=== PATIENT | male | born 1980 | race Caucasian/White ===

== ENCOUNTER 2016-07-03 19:30 | Emergency (ER) | payer SELFPAY ==
[~2016-07-03] VITALS: Wt 68.0 kg
[~2016-07-03 19:30] MED LIST: BACLOFEN20 M1 PO; CIPRO500 MG PO; CYCLOBENZAPRINE10 MG PO; GABAPENTIN TAB600 MG PO; HYDROCODONE BIT1 T11 PO; LISINOPRIL AND1 TAB PO; NAPROSYN500 MG PO; OMNICEF300 MG PO; PROVENTIL0.09 MG/A1 INH; TESSALON PERLE100 M1 PO; ULTRAM50 MG PO; ZITHROMAX250 MG PO; ZOFRAN4 MG PO
[2016-07-03 20:24] LABS: BILIRUBIN NEGATIVE (NEGATIVE); BLOOD 3+ (NEGATIVE); CLARITY SL CLOUDY (CLEAR); COLOR YELLOW (YELLOW); GLUCOSE NEGATIVE (NEGATIVE); KETONE NEGATIVE (NEGATIVE); LEUKO ESTERASE NEGATIVE (NEGATIVE); NITRITE NEGATIVE (NEGATIVE); PROTEIN NEGATIVE (NEGATIVE); SPECIFIC GRAVITY <= 1.005 (1.005-1.030); UROBILINOGEN 0.2 E.U./dl (0.2-1.0)
[2016-07-03 20:35] LABS: BACTERIA TRACE; RBC TNTC rbc/hpf (0-2)
[2016-07-03 20:38] LABS: URINE REFLEX COMMENT YES (NO)
[2016-07-03] MEDS ORDERED: CIPRO500 MG PO (22:48)
[2016-07-03] MEDS ORDERED: Motrin,Rufen800 MG PO (22:48)
[2016-07-04] MEDS ORDERED: FLOMAX0.4 MG PO (01:41)
[2016-07-04] MEDS ORDERED: HYDROCODONE BIT1 T11 PO (01:41)
[2016-07-04] MEDS ORDERED: Motrin,Rufen800 MG PO (01:41)
== END 2016-07-04 01:58 | disposition home or self-care (01) ==
LOC: ED 19:30
PROVIDERS: Physician Assistant
DX: N20.1 Calculus of ureter (principal); R31.9 Hematuria, unspecified; F17.200 Nicotine dependence, unspecified, uncomplicated; Z79.899 Other long term (current) drug therapy; Z87.442 Personal history of urinary calculi

== ENCOUNTER → 2016-07-08 | Outpatient (CLI) | payer SELFPAY ==
[~2016-07-08] MED LIST changes: +FLOMAX0.4 MG PO; +Motrin,Rufen800 MG PO
== END | disposition home or self-care (01) ==
LOC: RESCLI 03:55
DX: Z09 Encounter for follow-up examination after completed treatment for conditions other than malignant neoplasm (principal); N20.0 Calculus of kidney; I10 Essential (primary) hypertension; R31.9 Hematuria, unspecified

== ENCOUNTER → 2016-07-10 | Outpatient (CLI) | payer SELFPAY | END | disposition home or self-care (01) | LOC: CT 02:08 | DX: N20.0 Calculus of kidney (principal); R10.9 Unspecified abdominal pain ==

== ENCOUNTER → 2016-09-16 | Outpatient (CLI) | payer SELFPAY | END | disposition home or self-care (01) | LOC: RESCLI 02:01 | DX: I10 Essential (primary) hypertension (principal); G89.29 Other chronic pain ==

== ENCOUNTER → 2016-10-20 | Outpatient (CLI) | payer SELFPAY | END | disposition home or self-care (01) | LOC: RESCLI 13:10 | DX: H10.31 Unspecified acute conjunctivitis, right eye (principal); I10 Essential (primary) hypertension; M77.01 Medial epicondylitis, right elbow ==

== ENCOUNTER 2016-11-02 15:59 | Emergency (ER) | payer SELFPAY ==
[2016-11-02] MEDS ORDERED: NAPROSYN500 MG PO (16:15)
[2016-11-02] MEDS ORDERED: KEFLEX500 M1 PO (16:15)
[2016-11-02] MEDS ORDERED: BACTRIM DS 8001 TA1 PO (16:15)
[2016-11-02 16:19] LABS: BASO % 0.5 % (0.0-1.0); EOS # 0.1 10*3/uL (0.0-0.4); EOS % 1.6 % (1.0-4.0); HEMATOCRIT 46.2 % (42.0-52.0); HEMOGLOBIN 15.6 g/dl (14.0-18.0); LYMPH # 2.1 10*3/uL (1.3-4.4); LYMPH % 25.5 % (27.0-41.0); MEAN CELL VOLUME 93.1 fl (80.0-94.0); MEAN CORPUSCULAR HGB 31.5 pg (27.0-31.0); MEAN CORPUSCULAR HGB CONC 33.8 g/dl (33.0-37.0); MEAN PLATELET VOLUME 10.1 fl (9.6-12.3); MONO # 0.7 10*3/uL (0.1-1.0); MONO % 7.9 % (3.0-9.0); NEUT # 5.3 10*3/uL (2.3-7.9); NEUT % 64.3 % (47.0-73.0); PLATELET COUNT AUTOMATED 236 10*3/uL (130-400); RED BLOOD COUNT 4.96 10*6/uL (4.50-5.90); RED CELL DISTRI WIDTH 13.2 % (0-14.5); WHITE BLOOD COUNT 8.2 10*3/uL (4.8-10.8)
[2016-11-02 16:35] LABS: ALBUMIN 3.6 gm/dl (3.1-4.5); ALKALINE PHOSPHATASE 84 U/L (45-117); BILIRUBIN, TOTAL 0.5 mg/dl (0.2-1.0); BUN 8 mg/dl (7-24); CARBON DIOXIDE 23 mmol/L (21-32); CHLORIDE 108 mmol/L (98-107); EST GLOM FILT AFRICAN AMERICAN > 60 ml/min; GLUCOSE 118 mg/dL (65-99); POTASSIUM 3.5 mmol/L (3.5-5.1); SGOT/AST 10 IU/L (3-35); SGPT/ALT 13 U/L (12-78); SODIUM 141 mmol/L (136-145); TOTAL PROTEIN 6.9 gm/dL (6.4-8.2)
== END 2016-11-02 16:46 | disposition home or self-care (01) ==
LOC: ED 15:59
PROVIDERS: Nurse Practitioner Family
DX: L02.411 Cutaneous abscess of right axilla (principal); R03.0 Elevated blood-pressure reading, without diagnosis of hypertension; F17.200 Nicotine dependence, unspecified, uncomplicated

== ENCOUNTER → 2017-01-23 | Outpatient (CLI) | payer SELFPAY ==
[~2017-01-23] MED LIST changes: +BACTRIM DS 8001 TA1 PO; +KEFLEX500 M1 PO
[2017-01-23 10:08] LABS: BASO # 0.1 10*3/uL (0.0-0.1); EOS # 0.1 10*3/uL (0.0-0.4); EOS % 1.7 % (1.0-4.0); HEMOGLOBIN 16.6 g/dl (14.0-18.0); LYMPH # 1.9 10*3/uL (1.3-4.4); LYMPH % 36.2 % (27.0-41.0); MEAN CELL VOLUME 90.7 fl (80.0-94.0); MEAN CORPUSCULAR HGB CONC 35.3 g/dl (33.0-37.0); MEAN PLATELET VOLUME 9.6 fl (9.6-12.3); MONO # 0.4 10*3/uL (0.1-1.0); MONO % 7.1 % (3.0-9.0); NEUT # 2.8 10*3/uL (2.3-7.9); NEUT % 53.8 % (47.0-73.0); PLATELET COUNT AUTOMATED 256 10*3/uL (130-400); RED BLOOD COUNT 5.18 10*6/uL (4.50-5.90); RED CELL DISTRI WIDTH 13.2 % (0-14.5); WHITE BLOOD COUNT 5.2 10*3/uL (4.8-10.8)
[2017-01-23 10:39] LABS: ALBUMIN 4.1 gm/dl (3.1-4.5); ALKALINE PHOSPHATASE 77 U/L (45-117); BUN 10 mg/dl (7-24); CHLORIDE 102 mmol/L (98-107); CHOLESTEROL 157 mg/dL (<200); CREATININE 0.69 mg/dL (0.70-1.30); HDL CHOLESTEROL 47 mg/dl (40-60); LDL CHOLESTEROL 95 mg/dL (9-159); POTASSIUM 4.5 mmol/L (3.5-5.1); SGOT/AST 13 IU/L (3-35); SGPT/ALT 16 U/L (12-78); SODIUM 137 mmol/L (136-145); TOTAL PROTEIN 7.3 gm/dL (6.4-8.2); TRIGLYCERIDES 77 mg/dl (<150); VLDL CHOLESTEROL 15 mg/dL (6-40)
[2017-01-23 10:47] LABS: THYROID STIM HORMONE (HS) 0.461 uIU/ml (0.358-4.75)
== END | disposition home or self-care (01) ==
LOC: LAB 09:29
PROVIDERS: Nurse Practitioner Family
DX: I10 Essential (primary) hypertension (principal); R55 Syncope and collapse; E83.59 Other disorders of calcium metabolism; G47.00 Insomnia, unspecified

== ENCOUNTER 2017-03-08 19:31 | Emergency (ER) | payer SELFPAY ==
[~2017-03-08] VITALS: Ht 170.1 cm; Wt 68.0 kg
== END 2017-03-08 20:04 | disposition home or self-care (01) ==
LOC: ED 19:31
DX: M25.512 Pain in left shoulder (principal); F17.200 Nicotine dependence, unspecified, uncomplicated

== ENCOUNTER → 2017-03-17 | Outpatient (CLI) | payer SELFPAY | END | disposition home or self-care (01) | LOC: RAD 01:04 → RESCLI 01:04 | DX: S49.92XA Unspecified injury of left shoulder and upper arm, initial encounter (principal); I10 Essential (primary) hypertension; Z72.0 Tobacco use; Z71.6 Tobacco abuse counseling; X58.XXXA Exposure to other specified factors, initial encounter; Y93.89 Activity, other specified; Y92.89 Other specified places as the place of occurrence of the external cause; Y99.8 Other external cause status ==

== ENCOUNTER 2018-02-24 22:30 | Emergency (ER) | payer SELFPAY ==
[~2018-02-24] VITALS: Ht 170.1 cm; Wt 68.0 kg
[2018-02-24] MEDS ORDERED: SEPTDS PO (22:49)
[2018-02-24] MEDS ORDERED: CEPHALEXIN500 M1 PO (22:49)
== END 2018-02-24 22:54 | disposition home or self-care (01) ==
LOC: ED 22:30
DX: L02.414 Cutaneous abscess of left upper limb (principal); Z79.899 Other long term (current) drug therapy

== ENCOUNTER 2019-08-24 13:55 | Emergency (ER) | payer SELFPAY ==
[~2019-08-24] VITALS: Ht 170.1 cm; Wt 69.4 kg
[~2019-08-24 13:55] MED LIST changes: +CEPHALEXIN500 M1 PO; +SEPTDS PO
[2019-08-24] MEDS ORDERED: METHOCARBAMOL500 M1 PO (16:40)
[2019-08-24] MEDS ORDERED: Motrin,Rufen800 MG PO (16:40)
[2019-08-24] MEDS ORDERED: MEDROL DOSEPAK4 MG PO (16:40)
== END 2019-08-24 16:50 | disposition home or self-care (01) ==
LOC: ED 13:55
DX: S46.911A Strain of unspecified muscle, fascia and tendon at shoulder and upper arm level, right arm, initial encounter (principal); I10 Essential (primary) hypertension; F17.200 Nicotine dependence, unspecified, uncomplicated; Z79.899 Other long term (current) drug therapy; X58.XXXA Exposure to other specified factors, initial encounter; Y93.89 Activity, other specified; Y92.89 Other specified places as the place of occurrence of the external cause; Y99.8 Other external cause status

== ENCOUNTER → 2021-07-16 | Outpatient (CLI) | payer OTHER ==
[~2021-07-16] MED LIST changes: +MEDROL DOSEPAK4 MG PO; +METHOCARBAMOL500 M1 PO
== END | disposition home or self-care (01) ==
LOC: RAD 09:26
PROVIDERS: ATTEND Nurse Practitioner Family
DX: M25.521 Pain in right elbow (principal)

== ENCOUNTER 2022-04-08 14:19 | Emergency (ER) | payer SELFPAY ==
[~2022-04-08] VITALS: Ht 170.1 cm; Wt 65.8 kg
== END 2022-04-08 18:10 | disposition home or self-care (01) ==
LOC: ED 14:19
DX: S46.911A Strain of unspecified muscle, fascia and tendon at shoulder and upper arm level, right arm, initial encounter (principal); M79.89 Other specified soft tissue disorders; W18.30XA Fall on same level, unspecified, initial encounter; Y93.89 Activity, other specified; Y92.89 Other specified places as the place of occurrence of the external cause; Y99.8 Other external cause status

== ENCOUNTER 2022-05-15 11:54 | Emergency (ER) | payer OTHER ==
[~2022-05-15] VITALS: Wt 63.5 kg
== END 2022-05-15 12:45 | disposition home or self-care (01) ==
LOC: ED 11:54
DX: M25.511 Pain in right shoulder (principal); Z87.891 Personal history of nicotine dependence

== ENCOUNTER 2023-03-31 14:04 | Emergency (ER) | payer SELFPAY ==
[~2023-03-31] VITALS: Ht 170.1 cm; Wt 68.0 kg
[2023-03-31] MEDS ORDERED: NEURONTIN800 MG PO ×2 (15:08→15:39)
[2023-03-31] MEDS ORDERED: ZESTRIL10 MG PO (15:09)
== END 2023-03-31 15:50 | disposition home or self-care (01) ==
LOC: ED 14:04
DX: I63.9 Cerebral infarction, unspecified (principal); I10 Essential (primary) hypertension